=== PATIENT | female | born 2000 | race Caucasian/White ===

== ENCOUNTER 2019-02-13 21:46 | Emergency (ER) | payer OTHER ==
[2019-02-13 23:54] LABS: URINE BLOOD (Dip) POC Negative (NEGATIVE); URINE GLUCOSE (Dip) POC Negative (NEGATIVE); URINE KETONES (Dip) POC Negative (NEGATIVE); URINE LEUKOCYTE EST (Dip) POC Negative (NEGATIVE); URINE NITRITE (Dip) POC Negative (NEGATIVE); URINE TOTAL PROTEIN POC Negative (NEGATIVE)
== END 2019-02-14 01:14 | disposition home or self-care (01) ==
LOC: FTE 02-14 01:14
DX: M79.644 Pain in right finger(s) (principal); B35.2 Tinea manuum
CPT/HCPCS: 29130; 73140; 81003; 81025; 99283-25